=== PATIENT | female | born 2000 | race Caucasian/White ===

== ENCOUNTER 2023-03-03 05:29 | Day surgery (SDC) | payer BC ==
[2023-03-01 15:44] VITALS: BMI 24.6
[2023-03-03] MEDS ORDERED: Bupivacaine PF 0.5% 30 ML VIAL ONE (06:10)
[2023-03-03] MEDS ORDERED: EPINEPHrine 1 MG/ML AMP ONE (06:10)
[2023-03-03] MEDS ORDERED: Thrombin 5000 UNITS/5 ML VIAL ONE (06:10)
[2023-03-03] MEDS ORDERED: MINERAL OIL/WHITE PETROLATUM 3.5 GM TUBE ONE (06:24)
[2023-03-03] MEDS ORDERED: Sodium Chloride 0.9% 100 ML ONE ×2 (06:39→11:10)
[2023-03-03] MEDS ORDERED: CEFAZOLIN 2 GM VIAL ONE ×2 (06:39→11:10)
[2023-03-03] MEDS ORDERED: Famotidine/PF 20 mg/2ml Vial ONE (06:40)
[2023-03-03] MEDS ORDERED: Midazolam HCl 2 mg/2 ml Vial ONE (06:43)
[2023-03-03 06:46] LABS: BHCG - Serum Negative (NEGATIVE); Pregs Control Background? CLEAR/WHITE (CLR/WHITE); Pregs Control Bar Appear? YES (CONTROL BAR)
[2023-03-03] MEDS ORDERED: fentaNYL PF 100 MCG/2 ML SYRINGE ONE (06:58)
[2023-03-03] MEDS ORDERED: Ondansetron PF 4 MG/2 ML Vial ONE (07:07)
[2023-03-03] MEDS ORDERED: Rocuronium Bromide 10 MG/ML (10ML VIAL) ONE (07:07)
[2023-03-03] MEDS ORDERED: PROPOFOL 200 MG/20 ML VIAL ONE (07:07)
[2023-03-03] MEDS ORDERED: Lidocaine 1% PF 5 ML VIAL ONE (07:07)
[2023-03-03] MEDS ORDERED: Dexamethasone 20 MG/5 ML VIAL ONE (07:07)
[2023-03-03] MEDS ORDERED: SUGAMMADEX SODIUM 200 MG/2 ML VIAL ONE (07:59)
[2023-03-03] MEDS ORDERED: fentaNYL 50 mcg/mL 1 mL Vial ONE (08:48)
[2023-03-03] MEDS ORDERED: HYDROcodone/Acetaminophen 5/325 mg Tablet ONE (11:11)
== END 2023-03-03 11:42 | disposition home or self-care (01) ==
LOC: SDC 05:29
PROVIDERS: ATTEND Neurological Surgery
PROC: 0SB40ZZ Excision of Lumbosacral Disc, Open Approach (ICD-10-PCS; principal; 2023-03-03)
DX: M54.16 Radiculopathy, lumbar region (principal); F17.200 Nicotine dependence, unspecified, uncomplicated
CPT/HCPCS: 84703; C1713; J0171; J1100; J2250; J2405; J2704; J3010; J3490; S0020; S0028